=== PATIENT | female | born 1980 | race Caucasian/White ===

== ENCOUNTER 2017-06-28 10:52 | Emergency (ER) | payer SELFPAY ==
[~2017-06-28] VITALS: Ht 165.1 cm; Wt 90.0 kg
[~2017-06-28 10:52] MED LIST: CLIN300C2 PO; PREN200C PO; TYLE167L PO; TYLE325T5 PO
[2017-06-28 10:53] VITALS: BP 145/90
[2017-06-28] MEDS ORDERED: ZITHTAB PO (13:02)
== END 2017-06-28 13:56 | disposition home or self-care (01) ==
LOC: M ED 10:52
DX: J02.9 Acute pharyngitis, unspecified (principal); H92.03 Otalgia, bilateral; Z88.0 Allergy status to penicillin; Z91.018 Allergy to other foods; Z88.8 Allergy status to other drugs, medicaments and biological substances; J30.1 Allergic rhinitis due to pollen

== ENCOUNTER → 2019-03-31 | Outpatient (CLI) | payer BC ==
[~2019-03-31] MED LIST changes: +ZITHTAB PO
--- NOTE | 2019-03-31 15:09 | REP ---
Clinical: Trauma. Technique: AP, lateral, bilateral oblique and sunrise views left knee . Findings: The osseous structures and joint spaces are intact and normal. There is no evidence for acute fracture or dislocation. No joint effusion is appreciated. Surrounding soft tissues are unremarkable. No subcutaneous emphysema or radiodense foreign body. Impression: No acute fracture or dislocation. Electronically Signed by Dillon Galloway MD 03/31/2019 03:00 P
== END ==
LOC: M RAD 14:31
PROVIDERS: ATTEND Physician Assistant
DX: M23.92 Unspecified internal derangement of left knee (principal)

== ENCOUNTER 2020-03-20 08:46 | Emergency (ER) | payer BC, OTHER ==
[~2020-03-20] VITALS: Ht 165.1 cm; Wt 105.2 kg
[2020-03-20] MEDS ORDERED: NITR100C2 (08:53)
[2020-03-20 09:24] LABS: BASO # 0.1 10^3/uL (0.0-0.2); BASO % 0.9 % (0.0-1.0); EOS # 0.1 10^3/uL (0.0-0.5); EOS % 1.6 % (0.0-3.0); HEMATOCRIT 41.8 % (36.0-47.0); HEMOGLOBIN 14.3 g/dl (12.0-15.5); LYMPH # 1.7 10^3/uL (1.5-5.0); LYMPH % 29.8 % (24.0-44.0); MEAN CORPUSCULAR HEMOGLOBIN 33.2 pg (27.0-33.0); MEAN CORPUSCULAR HGB CONC 34.2 g/dl (32.0-36.5); MONO # 0.3 10^3/uL (0.0-0.8); MONO % 5.4 % (0.0-5.0); NEUTROPHILS # 3.6 10^3/uL (1.5-8.5); PLATELET COUNT, AUTOMATED 358 10^3/uL (150-450); RED BLOOD COUNT 4.31 10^6/uL (4.00-5.40); WHITE BLOOD COUNT 5.7 10^3/uL (4.0-10.0)
[2020-03-20 09:50] LABS: ALBUMIN 4.1 GM/DL (3.2-5.2); BILIRUBIN,DIRECT 0.2 MG/DL (0.0-0.2); BILIRUBIN,TOTAL 0.6 MG/DL (0.2-1.0); TOTAL PROTEIN 7.9 GM/DL (6.4-8.2)
--- NOTE | 2020-03-20 11:11 | REP ---
CT abdomen/pelvis: 03/20/2020. Indication: Flank pain. Kidney stone. Technique: Unenhanced axial CT images of the abdomen were performed with coronal and sagittal reconstructions provided. Comparison: 12/26/2015. Findings: There is no radiopaque renal calculus detected. There is no evidence of hydroureter or hydronephrosis. There is no organomegaly, lymphadenopathy or bowel obstruction. No significant osseous abnormalities are present. There is no free intraperitoneal air. Visualized lungs are clear. Impression: No radiopaque renal calculus. Electronically Signed by José Miguel Pugh DO 03/20/2020 11:02 A
[2020-03-20 11:54] VITALS: BP 138/90
== END 2020-03-20 11:56 | disposition home or self-care (01) ==
LOC: M ED 08:46
DX: N39.0 Urinary tract infection, site not specified (principal); R10.9 Unspecified abdominal pain; M54.9 Dorsalgia, unspecified; R31.9 Hematuria, unspecified; F17.200 Nicotine dependence, unspecified, uncomplicated; Z87.440 Personal history of urinary (tract) infections; Z88.0 Allergy status to penicillin; Z88.8 Allergy status to other drugs, medicaments and biological substances; Z91.018 Allergy to other foods; J30.1 Allergic rhinitis due to pollen; Z79.2 Long term (current) use of antibiotics

== ENCOUNTER → 2021-08-11 | Outpatient (CLI) | payer OTHER ==
[~2021-08-11] MED LIST changes: +NITR100C2
--- NOTE | 2021-08-11 13:01 | REP ---
INDICATION: R10.2 PELVIC PAIN. COMPARISON: There are no pertinent priors for comparison TECHNIQUE: Transvesical and transvaginal imaging FINDINGS: The uterus measures 6.5 x 3.5 x 4.6 cm. The parenchymal echo pattern is heterogenous. There are multiple parenchymal nodules. The largest 2 measure 1.2 x 1.1 x 1.6 cm and 5 mm. The endometrial echo complex is somewhat heterogenous measuring 5 mm in its greatest thickness. The right ovary measures 3.1 x 1.7 x 2.3 cm and is within normal limits with an RI of 0.34 The left ovary measures 3.1 x 2.1 x 1.7 cm and is within normal limits with an RI 0.40. Urinary bladder measures 6 x 4 x 9 cm. IMPRESSION: Uterine myomatous changes. <Electronically signed by Vladimir Benton > 08/11/21 [id number]
== END ==
LOC: M RAD 07:43
PROVIDERS: ATTEND Family Medicine
DX: R10.2 Pelvic and perineal pain (principal)

== ENCOUNTER → 2022-05-16 | Outpatient (REF) | payer OTHER | LOC: M SFHCWAGY 13:00 | PROVIDERS: ATTEND Obstetrics & Gynecology | DX: N93.9 Abnormal uterine and vaginal bleeding, unspecified (principal) ==

== ENCOUNTER → 2022-05-31 | Outpatient (CLI) | payer OTHER ==
[~2022-05-31] MED LIST changes: +SAXE1INJ SQ; +VYVA60CA PO
== END ==
LOC: M LABSMTC 10:18
PROVIDERS: ATTEND Anesthesiology
DX: Z01.818 Encounter for other preprocedural examination (principal); Z11.52 Encounter for screening for COVID-19

== ENCOUNTER 2022-06-05 06:07 | Day surgery (SDC) | payer OTHER ==
[2022-06-04 11:00] VITALS: BP 122/77
[~2022-06-05] VITALS: Ht 160 cm; Wt 83.9 kg
[~2022-06-05 06:07] MED LIST changes: +ceFAZolin SOD 2 GM in IV 1 EA IV ONE
[2022-06-05] MEDS ORDERED: LR 1,000 ML IV SCH ×3 (06:25→11:05)
[2022-06-05 07:02] LABS: HEMATOCRIT 37.4 % (36.0-47.0); HEMOGLOBIN 12.8 g/dl (12.0-15.5); MEAN CORPUSCULAR HEMOGLOBIN 33.2 pg (27.0-33.0); MEAN CORPUSCULAR HGB CONC 34.2 g/dl (32.0-36.5); MEAN CORPUSCULAR VOLUME 97.1 fl (80.0-96.0); PLATELET COUNT, AUTOMATED 293 10^3/uL (150-450); RED BLOOD COUNT 3.85 10^6/uL (4.00-5.40); WHITE BLOOD COUNT 5.4 10^3/uL (4.0-10.0)
[2022-06-05] MEDS ORDERED: LIDOCAINE 2% 100MG/5ML SDV (FOR ANES.) As Ordered ONE (07:13)
[2022-06-05] MEDS ORDERED: MIDAZOLAM INJ 2MG/2ML VIAL (J2250 PER 1MG) As Ordered ONE (07:13)
[2022-06-05] MEDS ORDERED: fentaNYL 100 MCG/2 ML INJECTION As Ordered ONE ×2 (07:13→08:23)
[2022-06-05] MEDS ORDERED: propofoL 200 MG/20 ML VIAL As Ordered ONE ×2 (07:13→08:26)
[2022-06-05] MEDS ORDERED: ROCURONIUM BROMIDE 50 MG/5 ML VIAL As Ordered ONE (07:14)
[2022-06-05] MEDS ORDERED: dexameTHASONE 4 MG/ML 1ML VIAL (J1100 PER 1MG) As Ordered ONE (07:14)
[2022-06-05] MEDS ORDERED: ONDANSETRON 4MG 2ML VIAL As Ordered ONE (07:14)
[2022-06-05] MEDS ORDERED: KETOROLAC 60MG 2ML VIAL As Ordered ONE (07:14)
[2022-06-05] MEDS ORDERED: BUPIVACAINE HCL 0.25% 30ML VIAL As Ordered ONE (07:17)
[2022-06-05] MEDS ORDERED: METHYLENE BLUE 0.5% (5MG/ML) 10 ML AMP (PROVAYBLUE) As Ordered ONE (07:18)
[2022-06-05 07:30] LABS: HCG, SERUM QUALITATIVE NEGATIVE (NEGATIVE)
[2022-06-05] MEDS ORDERED: KETAMINE HCL 200 MG/20 ML VIAL As Ordered ONE (07:41)
[2022-06-05] MEDS ORDERED: HYDROmorphone HCL 2MG/ML 1ML VIAL As Ordered ONE (08:11)
[2022-06-05] MEDS ORDERED: SUGAMMADEX SODIUM 500 MG/5 ML VIAL (BRIDION) As Ordered ONE (09:08)
[2022-06-05] MEDS ORDERED: ACETAMINOPHEN 1000MG 100ML IV BTL (OFIRMEV) (J0131 PER 10MG) As Ordered ONE (09:09)
[2022-06-05] MEDS ORDERED: OXYC1TAB23 PO (09:34)
[2022-06-05] MEDS ORDERED: oxyCODONE 5MG TAB PO PRN (09:35)
[2022-06-05] MEDS ORDERED: ONDANSETRON 4MG 2ML VIAL IV PRN ×2 (09:35→10:25)
[2022-06-05] MEDS ORDERED: fentaNYL 100 MCG/2 ML INJECTION IV PRN (09:35)
[2022-06-05] MEDS ORDERED: IBUP80TA PO (09:35)
[2022-06-05] MEDS ORDERED: ONDA4TAB6 PO (09:36)
[2022-06-05] MEDS ORDERED: COLA100C5 PO (09:36)
[2022-06-05] MEDS ORDERED: PERCOCET 5MG/325MG TAB PO PRN ×2 (10:25)
[2022-06-05 11:30] VITALS: BP 111/66
[2022-06-05] MEDS ORDERED: KETOROLAC 30 MG/ML 1ML VIAL IV SCH (12:00)
[2022-06-05 12:30] VITALS: BP 104/58
[2022-06-05] MEDS ORDERED: MORPHINE 4 MG/ML 1ML VIAL/SYRINGE IV ONE (13:10)
[2022-06-05 13:30] VITALS: BP 105/60
[2022-06-05 14:30] VITALS: BP 107/61
[2022-06-05 15:30] VITALS: BP 105/63
[2022-06-06] MEDS ORDERED: IBUPROFEN 800 MG TAB PO SCH (12:00)
== END 2022-06-05 17:13 | disposition home or self-care (01) ==
LOC: M SDC 06:07 → M PED 10:38 → M SDC 17:13
PROVIDERS: ATTEND Obstetrics & Gynecology
DX: D25.9 Leiomyoma of uterus, unspecified (principal); N88.8 Other specified noninflammatory disorders of cervix uteri; Z77.098 Contact with and (suspected) exposure to other hazardous, chiefly nonmedicinal, chemicals; Z88.0 Allergy status to penicillin; J30.89 Other allergic rhinitis; Z91.018 Allergy to other foods
CPT/HCPCS: 36415; 58571; 84703; 85027; 86850; 86900; 86901; 88307; J0131; J0690; J1100; J1170; J1885; J2250; J2270; J2405; J3010; Q9968; S2900

== ENCOUNTER → 2023-05-03 | Outpatient (CLI) | payer OTHER ==
[~2023-05-03] MED LIST changes: +COLA100C5 PO; +IBUP80TA PO; +ONDA4TAB6 PO; +OXYC1TAB23 PO; -ceFAZolin SOD 2 GM in IV 1 EA IV ONE
[2023-05-03 11:59] LABS: BASO % 0.6 % (0.0-1.0); EOS # 0.1 10^3/uL (0.0-0.5); EOS % 1.4 % (0.0-3.0); HEMATOCRIT 39.1 % (36.0-47.0); HEMOGLOBIN 13.5 g/dl (12.0-15.5); LYMPH # 1.1 10^3/uL (1.5-5.0); MEAN CORPUSCULAR HEMOGLOBIN 33.9 pg (27.0-33.0); MEAN CORPUSCULAR HGB CONC 34.5 g/dl (32.0-36.5); MEAN CORPUSCULAR VOLUME 98.2 fl (80.0-96.0); MONO # 0.3 10^3/uL (0.0-0.8); MONO % 6.6 % (2.0-8.0); NEUTROPHILS # 3.6 10^3/uL (1.5-8.5); NEUTROPHILS % 69.2 % (36.0-66.0); PLATELET COUNT, AUTOMATED 333 10^3/uL (150-450); RED BLOOD COUNT 3.98 10^6/uL (4.00-5.40); WHITE BLOOD COUNT 5.1 10^3/uL (4.0-10.0)
[2023-05-03 12:09] LABS: HEMOGLOBIN A1c 4.6 % (4.0-6.0)
[2023-05-03 12:20] LABS: ALKALINE PHOSPHATASE 55 U/L (46-116); ALT/SGPT 57 U/L (7.0-40); AST/SGOT 49 U/L (<34); BILIRUBIN,TOTAL 1.3 MG/DL (0.3-1.2); BLOOD UREA NITROGEN 10 MG/DL (9-23); CALCIUM LEVEL 9.3 MG/DL (8.5-10.1); CARBON DIOXIDE LEVEL 26 MMOL/L (20-31); CHLORIDE LEVEL 106 MMOL/L (98-107); CHOLESTEROL LEVEL 229 MG/DL (<200); CHOLESTEROL RISK RATIO 2.03 (<5); CREATININE FOR GFR 0.65 MG/DL (0.55-1.30); FREE T4 1.13 NG/DL (0.89-1.76); GLOMERULAR FILTRATION RATE > 60.0 (>58); GLUCOSE, FASTING 83 MG/DL (60-100); HDL CHOLESTEROL 112.6 MG/DL (>40); NON-HDL-C 116.4 MG/DL; POTASSIUM SERUM 4.3 MMOL/L (3.5-5.1); SODIUM LEVEL 140 MMOL/L (136-145); THYROID STIMULATING HORMONE 0.977 uIU/ML (0.55-4.78); TOTAL PROTEIN 7.1 G/DL (5.7-8.2); TRIGLYCERIDES LEVEL 42 MG/DL (<150)
== END ==
LOC: M LAB 10:59
PROVIDERS: ATTEND Physician Assistant
DX: Z13.220 Encounter for screening for lipoid disorders (principal)

== ENCOUNTER → 2023-07-16 | Outpatient (CLI) | payer OTHER | LOC: M WHC 13:07 | PROVIDERS: ATTEND Physician Assistant | DX: R92.2 Inconclusive mammogram (principal) ==

== ENCOUNTER → 2024-02-11 | Outpatient (CLI) | payer OTHER | LOC: M WHC 13:31 | PROVIDERS: ATTEND Physician Assistant | DX: Z12.31 Encounter for screening mammogram for malignant neoplasm of breast (principal) ==

== ENCOUNTER 2024-12-28 21:07 | Emergency (ER) | payer OTHER ==
[~2024-12-28] VITALS: Ht 162.6 cm; Wt 85.3 kg
[~2024-12-28 21:07] MED LIST changes: +ONDA-282 PO; -ONDA4TAB6 PO
[2024-12-28 21:18] VITALS: BP 152/83; TEMP 98.1; O2SAT 98
[2024-12-29] MEDS ORDERED: CIPRHCOTIC OTIC (00:59)
[2024-12-29] MEDS ORDERED: CLEO300C2 PO (01:00)
== END 2024-12-29 01:16 | disposition home or self-care (01) ==
LOC: M ED 21:07
DX: H65.04 Acute serous otitis media, recurrent, right ear (principal); F17.210 Nicotine dependence, cigarettes, uncomplicated; Z88.0 Allergy status to penicillin; Z91.018 Allergy to other foods; Z79.2 Long term (current) use of antibiotics; Z79.1 Long term (current) use of non-steroidal anti-inflammatories (NSAID); Z79.899 Other long term (current) drug therapy